=== PATIENT | male | born 1980 | race African-American/Black ===

== ENCOUNTER 2016-12-05 21:13 | Emergency (ER) | payer SELFPAY ==
[~2016-12-05] VITALS: Ht 180.3 cm; Wt 81.8 kg
[~2016-12-05 21:13] MED LIST: CEPHALEXIN500 M1 PO; CHOLESTEROL MED; NO HOME MEDICATIONS; NORCO 325 MG-51 TAB PO; PRINIVIL20 MG PO; [UNRECOGNIZED DRUG - REMARK]
[2016-12-05 21:20] VITALS: TEMP 98.9
[2016-12-05 21:34] LABS: BASO # 0.1 (0.0-0.2); BASO % 0.7 % (0.0-2.0); EOS # 0.1 (0.0-0.7); EOS % 0.9 % (0-4.0); GRAN # 5.9 (1.4-6.5); GRAN % 62.5 % (42.2-75.2); HEMATOCRIT 48.6 % (42.0-52.0); HEMOGLOBIN 16.4 g/dl (13.5-18.0); LYMPH # 2.8 (1.2-3.4); LYMPH % 30.1 % (20.0-51.0); MEAN CELL VOLUME 91 fl (80.0-100.0); MEAN CORPUSCULAR HEMOGLOBIN 31 pg (27.0-31.0); MEAN CORPUSCULAR HGB CONC 34 g/dl (33.0-37.0); MEAN PLATELET VOLUME 8.7 fl (7.4-10.4); MONO # 0.5 (0.1-0.6); MONO % 5.4 % (1.7-9.3); PLATELET COUNT 300 K/mm3 (130-400); RED BLOOD COUNT 5.37 M/mm3 (4.20-5.60); REDCELL DISTRIBUTION WIDTH-CV 12.3 % (11.5-14.5); WHITE BLOOD COUNT 9.4 K/mm3 (4.8-10.8)
[2016-12-05 21:44] LABS: ADJUSTED CALCIUM 9.1 mg/dL (8.4-10.2); ALANINE AMINOTRANSFERASE 99 U/L (21-72); ALBUMIN 4.7 gm/dL (3.5-5.0); ALKALINE PHOSPHATASE 84 U/L (50-136); ANION GAP 15 mmol/L (7-16); BILIRUBIN,TOTAL 0.8 mg/dL (0.0-1.0); BLOOD UREA NITROGEN 10 mg/dL (9-20); CALCIUM 9.7 mg/dL (8.4-10.2); CARBON DIOXIDE 27 mmol/L (22-30); CHLORIDE 103 mmol/L (98-107); CREATININE, serum 1.03 mg/dL (0.66-1.25); GLUCOSE 87 mg/dL (74-106); POTASSIUM 3.9 mmol/L (3.4-5.0); SODIUM 144 mmol/L (137-145); TOTAL PROTEIN 8.7 gm/dL (6.4-8.2)
[2016-12-05 22:11] LABS: ACETAMINOPHEN < 10 ug/mL (10-30); SALICYLATE < 1.0 mg/dL; TROPONIN-I < 0.012 ng/mL (0.000-0.034)
[2016-12-05 22:14] LABS: AMPHETAMINE URINE NEGATIVE; BARBITURATES URINE NEGATIVE; BENZODIAZEPINES URINE NEGATIVE; BUPRENORPHINE URINE NEGATIVE; METHADONE URINE NEGATIVE; OPIATES URINE NEGATIVE; OXYCODONE URINE NEGATIVE; PHENCYCLIDINE URINE NEGATIVE; PROPOXYPHENE URINE NEGATIVE; THC CANNABINOIDS URINE NEGATIVE
[2016-12-06 00:22] LABS: ACETAMINOPHEN < 10 ug/mL (10-30)
[2016-12-06 02:04] LABS: ACETAMINOPHEN < 10 ug/mL (10-30)
[2016-12-06 02:05] LABS: TROPONIN-I < 0.012 ng/mL (0.000-0.034)
[2016-12-06 06:14] VITALS: BP 157/114; PULSE 80
== END 2016-12-06 06:18 ==
LOC: COL.ER 21:13
PROVIDERS: Emergency Medicine
DX: T39.312A Poisoning by propionic acid derivatives, intentional self-harm, initial encounter (principal); T45.0X2A Poisoning by antiallergic and antiemetic drugs, intentional self-harm, initial encounter; F32.9 Major depressive disorder, single episode, unspecified; R45.851 Suicidal ideations; F10.120 Alcohol abuse with intoxication, uncomplicated; Y90.6 Blood alcohol level of 120-199 mg/100 ml; I45.10 Unspecified right bundle-branch block; I10 Essential (primary) hypertension; F17.210 Nicotine dependence, cigarettes, uncomplicated
CPT/HCPCS: J7030